=== PATIENT | female | born 1955 ===

== ENCOUNTER 2022-12-14 06:12 | Day surgery (SDC) | payer MEDICARE, OTHER ==
[~2022-12-14 06:12] MED LIST: Dextrose 5%-0.45% NaCl 1,000 ML IV SCH; Sodium Chloride 0.9% 10 ML Syringe FLUSH PRN; Sodium Chloride 0.9% 10 ML Syringe FLUSH SCH
[2022-12-14] MEDS ORDERED: fentaNYL 100 MCG/2 ML SDV ONE (07:33)
[2022-12-14] MEDS ORDERED: Midazolam 1 MG/ML 2 ML SDV ONE (07:33)
[2022-12-14] MEDS ORDERED: fentaNYL 100 MCG/2 ML SDV IV ONE ×3 (07:36→07:49)
[2022-12-14] MEDS ORDERED: Midazolam 1 MG/ML 2 ML SDV IV ONE ×6 (07:37→07:46)
== END 2022-12-14 09:35 | disposition home or self-care (01) ==
LOC: DL.ENDO 06:12
PROVIDERS: ATTEND Internal Medicine Gastroenterology
DX: Z12.11 Encounter for screening for malignant neoplasm of colon (principal); K21.9 Gastro-esophageal reflux disease without esophagitis; E78.5 Hyperlipidemia, unspecified; M81.0 Age-related osteoporosis without current pathological fracture; Z88.5 Allergy status to narcotic agent; Z80.0 Family history of malignant neoplasm of digestive organs
CPT/HCPCS: G0105; J2250; J3010; J7042